=== PATIENT | female | born 2000 | race Hispanic/Latino ===

== ENCOUNTER 2022-03-24 03:43 | Inpatient (IN) | payer OTHER ==
[2022-03-24 04:06] VITALS: BMI 38.2
[2022-03-24] MEDS ORDERED: Acetaminophen 500 MG TAB PO PRN (04:53)
[2022-03-24] MEDS ORDERED: Lidocaine 1% (PF) 30 ML VIAL SC PRN (04:53)
[2022-03-24] MEDS ORDERED: Ibuprofen 800 MG TAB PO PRN (04:53)
[2022-03-24] MEDS ORDERED: Promethazine HCl 25 MG/ML VIAL IM PRN (04:53)
[2022-03-24] MEDS ORDERED: hydrALAZINE 20 MG/ML VIAL SLOW IVP PRN ×2 (04:53→11:46)
[2022-03-24] MEDS ORDERED: Ondansetron PF 4 MG/2 ML Vial IVP PRN ×2 (04:53→11:46)
[2022-03-24] MEDS ORDERED: NS w/ Oxytocin 30 units 500 ML IV SCH ×3 (05:00→11:46)
[2022-03-24] MEDS ORDERED: Lactated Ringer's 1,000 ML IV SCH (05:00)
[2022-03-24 05:10] LABS: Hemoglobin 11.1 g/dL (12.0-15.5); Mean Corpuscular HGB CONC 33.9 g/dL (32.0-36.0); Mean Corpuscular Hemoglobin 27.9 pg (27.0-33.0); Mean Corpuscular Volume 82.2 fl (81.6-98.3); Mean Platelet Volume 9.9 fl (7.4-10.4); Platelet Count 293 10x3/uL (150-450); RBC Distribution Width 13.2 % (11.5-14.5); Red Blood Cell (RBC) Count 3.98 10x6/uL (3.90-5.03); White Blood Cell (WBC) Count 8.9 10x3/uL (3.5-10.5)
[2022-03-24 05:19] LABS: ALT (SGPT) 6 U/L (8-55); AST (SGOT) 11 U/L (5-30); Albumin 3.6 g/dL (3.5-5.0); Alkaline Phosphatase 138 U/L (40-100); Anion Gap 14 mmol/L (10-20); BUN (Urea Nitrogen) 6 mg/dL (8.4-21.0); Bilirubin, Total 0.3 mg/dL (0.2-1.2); Calc. Creatinine Clearance 276 mL/min (70-130); Calcium 9.1 mg/dL (7.8-10.44); Carbon Dioxide 20 mmol/L (22-29); Chloride 106 mmol/L (98-107); Estimated GFR 136; Globulin 3.1 g/dL (2.4-3.5); Glucose 96 mg/dL (70-105); Potassium 3.9 mmol/L (3.5-5.1); Protein, Total 6.7 g/dL (6.0-8.3); Sodium 136 mmol/L (136-145)
[2022-03-24 05:38] LABS: HBSAg Index 0.21 S/CO (0-0.99); Hep B Surf Ag Non-Reactive S/CO (NonReactive); Syphilis Antibody Nonreactive (Nonreactive); Syphilis Antibody Index 0.04 S/CO (<1.00 Non-Reactive)
[2022-03-24 06:35] LABS: SARS-CoV-2 NAA Rapid Test Not Detected (NotDetected)
[2022-03-24] MEDS ORDERED: Bisacodyl 10 MG SUPP PR PRN (11:46)
[2022-03-24] MEDS ORDERED: diphenhydrAMINE 25 MG CAP PO PRN (11:46)
[2022-03-24] MEDS ORDERED: Misoprostol 200 MCG TAB VAG PRN (11:46)
[2022-03-24] MEDS ORDERED: Preparation H Ointment 28 GM TUBE PR PRN (11:46)
[2022-03-24] MEDS ORDERED: Milk Of Magnesia 30 ML UDCUP PO PRN (11:46)
[2022-03-24] MEDS ORDERED: Boostrix 0.5 ML (Tdap) VIAL (>/=7 yrs of age) IM ONE (11:46)
[2022-03-24] MEDS ORDERED: Lanolin Ointment 7 GM TUBE TOP PRN (11:46)
[2022-03-24] MEDS ORDERED: Methylergonovine 0.2 MG/ML VIAL IM PRN (11:46)
[2022-03-24] MEDS: Benzocaine-Menthol 82.5 ML CAN TOP PRN (12:41)
[2022-03-24] MEDS: Ibuprofen 800 MG TAB PO SCH ×2 (13:40→21:26)
[2022-03-24] MEDS: Ferrous Sulfate 325 MG TAB PO SCH (14:53)
[2022-03-24] MEDS: Docusate 100 MG CAP PO SCH (21:26)
[2022-03-25] MEDS: Ibuprofen 800 MG TAB PO SCH ×3 (05:49→21:45)
[2022-03-25] MEDS: Docusate 100 MG CAP PO SCH ×2 (09:35→21:45)
[2022-03-25] MEDS: Prenatal Vitamin 1 TAB PO SCH (09:35)
[2022-03-25] MEDS: Ferrous Sulfate 325 MG TAB PO SCH ×2 (09:40→16:51)
[2022-03-25] MEDS: Benzocaine-Menthol 82.5 ML CAN TOP PRN (19:00)
[2022-03-26] MEDS: Ibuprofen 800 MG TAB PO SCH (05:44)
[2022-03-26 07:53] VITALS: BP 121/71; TEMP 98.3
[2022-03-26] MEDS: Docusate 100 MG CAP PO SCH (08:27)
[2022-03-26] MEDS: Prenatal Vitamin 1 TAB PO SCH (08:27)
[2022-03-26] MEDS: Ferrous Sulfate 325 MG TAB PO SCH (08:28)
== END 2022-03-26 13:30 | disposition home or self-care (01) | DRG 807 ==
LOC: CSHLD/OP 03:43 → CSHLD 04:21 → CSHPED 11:29
PROVIDERS: ADMIT Student in an Organized Health Care Education/Training Program; ATTEND Student in an Organized Health Care Education/Training Program
PROC: 10E0XZZ Delivery of Products of Conception, External Approach (ICD-10-PCS; principal; 2022-03-24)
PROC: 0KQM0ZZ Repair Perineum Muscle, Open Approach (ICD-10-PCS; 2022-03-24)
PROC: 0UQMXZZ Repair Vulva, External Approach (ICD-10-PCS; 2022-03-24)
DX: O42.02 Full-term premature rupture of membranes, onset of labor within 24 hours of rupture (principal); Z37.0 Single live birth; Z3A.37 37 weeks gestation of pregnancy; E66.9 Obesity, unspecified; O99.214 Obesity complicating childbirth; O70.1 Second degree perineal laceration during delivery; Z20.822 Contact with and (suspected) exposure to COVID-19
CPT/HCPCS: 36415; 80053; 85027; 86780; 86850; 86900; 86901; 87340; J2001; J2590; J7120; U0002

== ENCOUNTER 2023-09-09 23:28 | Day surgery (SDC) | payer OTHER ==
[2023-09-10] MEDS ORDERED: hydrALAZINE 20 MG/ML VIAL SLOW IVP PRN (00:04)
== END 2023-09-10 01:06 | disposition home or self-care (01) ==
LOC: CSHLD/OP 23:28
PROVIDERS: ATTEND Emergency Medicine
DX: O36.8130 Decreased fetal movements, third trimester, not applicable or unspecified (principal); Z3A.29 29 weeks gestation of pregnancy; Z79.899 Other long term (current) drug therapy; O99.213 Obesity complicating pregnancy, third trimester
CPT/HCPCS: 76819